=== PATIENT | female | born 1980 | race Caucasian/White ===

== ENCOUNTER 2018-07-21 10:31 | Emergency (ER) | payer BC, SELFPAY ==
[2018-07-21 10:36] VITALS: BP 135/81; PULSE 81; RESP 16; TEMP 37.1; O2SAT 100
[2018-07-21 12:10] VITALS: PULSE 65
[2018-07-21 12:20] VITALS: BP 107/77; PULSE 63; RESP 16; O2SAT 100
--- NOTE | 2018-07-21 12:39 | ED.EXTPRO ---
HPI - Extremity Problem <TRACY Pratt - Last Filed: 07/21/18 21:46> General Chief complaint: Extremity Problem,Nontraumatic Stated complaint: symptoms of heart attack Time Seen by Provider: 07/21/18 12:39 Source: patient Mode of arrival: ambulatory Limitations: no limitations History of Present Illness HPI Narrative: 37-year-old healthy female that is a nonsmoker here for complaint of numbness to the left side of her face and to her left arm on and off over the past few days. She reports that she had an allergic reaction secondary to exposure to parsnips a couple of days ago. She was seen in emergency room in [place] and was treated with Benadryl and short course of prednisone and she reports that she is currently using the prednisone. She denies any swelling. She denies any shortness of breath. She does states she has a little bit of heart burn after prednisone use. She states that her allergic reaction symptoms have resolved. She has full range of motion to all of her extremities. She is ambulatory into the emergency room. She denies any headache. No abdominal pain. No nausea vomiting no diaphoresis. She denies any other current concerns or complaints at this time. Related Data Home Medications Medication Instructions Recorded Confirmed PNV cmb#95-ferrous fumarate-FA 1 tab PO DAILY 07/21/18 07/21/18 [] Vitamin D3 1 tab PO DAILY 07/21/18 07/21/18 aspirin 81 mg PO DAILY 07/21/18 07/21/18 diphenhydramine HCl [Benadryl] 1 dose PO PRN PRN 07/21/18 07/21/18 epinephrine 0.3 ml IM PRN PRN 07/21/18 07/21/18 magnesium 1 tab PO DAILY 07/21/18 07/21/18 prednisone 1 dose PO DIRECTED 07/21/18 07/21/18 progesterone micronized 1 dose PO DIRECTED 07/21/18 07/21/18 zinc 1 tab PO DAILY 07/21/18 07/21/18 Allergies Allergy/AdvReac Type Severity Reaction Status Date / Time parsnips Allergy Severe Anaphylaxis Uncoded 07/21/18 10:45 Review of Systems <TRACY Pratt - Last Filed: 07/21/18 21:46> Constitutional Denies chills, Denies fever(s), Denies lethargy and Denies weakness Eyes Denies change in vision, Denies eye discharge, Denies irritation and Denies loss of vision ENT Ears, Nose, Mouth, and Throat: Denies change in voice, Denies neck pain and Denies sore throat Cardiovascular Denies chest pain, Denies irregular heart rhythm, Denies lightheadedness, Denies palpitations, Denies dyspnea, Denies dyspnea on exertion and Denies orthopnea Respiratory Denies cough, Denies dyspnea, Denies dyspnea on exertion and Denies wheezing Gastrointestinal Comments: Heartburn Genitourinary Denies hematuria, Denies flank pain, Denies urinary incontinence and Denies urinary urgency Musculoskeletal Denies neck pain Comments: Numbness to her left upper extremity Integumentary/Breasts Denies pruritus, Denies erythema, Denies rash and Denies wounds Neurologic Denies confusion, Denies loss of vision and Denies weakness Comments: Numbness to her left face Psychiatric Denies anxiety, Denies confusion, Denies depression, Denies homicidal ideation and Denies suicidal ideation Endocrine Denies palpitations Hematologic/Lymphatic Denies easy bruising Allergic/Immunologic Denies wheezing Exam <TRACY Pratt - Last Filed: 07/21/18 21:46> Initial Vital Signs Initial Vital Signs: Vital Signs Temperature 98.7 F 07/21/18 10:36 Pulse Rate 81 07/21/18 10:36 Respiratory Rate 16 07/21/18 10:36 Blood Pressure 135/81 07/21/18 10:36 Pulse Oximetry 100 07/21/18 10:36 Const General: cooperative and well developed Nutritional Appearance: well nourished Orientation: alert, awake, oriented x3 and not confused [facility] Head: normal to inspection, normocephalic and atraumatic Face and sinus: normal facial exam, face symmetric and no sinus tenderness Mouth: oral mucosae normal and moist mucous membranes Teeth and gingiva: dentition normal Throat: tonsils normal and uvula midline Eyes General: appearance normal, both eyes and all related structures Eyelids: eyelids normal Conjunctivae: conjunctivae normal Sclera: sclerae normal Pupils: PERRL EOM: EOM intact bilaterally Neck Neck: normal visual inspection, trachea midline, No lymphadenopathy, No midline deformity and No JVD Lymphatic: No lymphedema Resp Effort & Inspection: normal respiratory effort, able to speak in complete sentences, no respiratory distress and no use of accessory muscles Auscultation: clear to auscultation bilaterally, no rales, no rhonchi and no wheezes Cardio Rate: regular rate Rhythm: regular rhythm Heart Sounds: no click, no gallops, no murmurs and no rubs Pulses: normal peripheral pulses Skin General: no rashes or lesions noted, No jaundice and No petechiae Neuro General: alert, oriented x3, gait normal and no focal motor deficits Cranial Nerves: CN's II-XI intact bilaterally, PERRL, EOM intact bilaterally, facial strength normal, tongue midline, able to rotate head bilaterally and able to elevate shoulders bilaterally Cognition: normal cognition Speech: speech normal Gait: normal gait Motor: muscle tone normal throughout and strength 5/5 throughout Sensory Exam: no sensory deficits noted Extrem General: full ROM, no clubbing, cyanosis or edema, no pedal edema and no calf tenderness Other: Left upper extremity with no signs of trauma. Distal sensation is intact. Full range of motion to bilateral upper extremities. Strength to upper extremities equal. Distal pulses are intact. <Catalina Parsons DO - Last Filed: 07/22/18 08:29> Initial Vital Signs Initial Vital Signs: Vital Signs Temperature 98.7 F 07/21/18 10:36 Pulse Rate 81 07/21/18 10:36 Respiratory Rate 16 07/21/18 10:36 Blood Pressure 135/81 07/21/18 10:36 Pulse Oximetry 100 07/21/18 10:36 Scores <TRACY Pratt - Last Filed: 07/21/18 21:46> HEART Score Heart Score history: Slightly Suspicious Heart Score EKG: Normal Heart Score Age: < 45 years old Heart Score risk factors: No known risk factors Heart Score troponin: < or = to normal limit Heart Score Total: 0 NIH Stroke Scale Level of Conciousness: Alert, keenly responsive Ask month/age: Answers both questions correctly. Open/close eyes, close hand: Performs both tasks correctly Best gaze horizontal: Normal Visual weeks: No visual loss Facial palsy: Normal symetrical movement Left arm drift: No drift for full 10 sec Right arm drift: No drift for full 10 sec Left leg drift: No drift for full 10 sec Right leg drift: No drift for full 10 sec Limb ataxia: Absent Sensory on face/arms/legs: Mild to moderate sensory loss, can tell touch Best language: No aphasia, normal Dysarthria: Normal Extinction or inattention: No abnormality Total NIH Stroke scale score: 1 PERC Score Age greater than or equal to 50 years: No Heart rate greater than or equal to 100 bpm: No Room Air O2 Sat less than 95%: No Unilateral leg swelling: No Recent trauma or surgery: No Hemoptysis: No Prior PE or DVT: No Hormone Use: Yes Total PERC Score: 1 Course <TRACY Pratt - Last Filed: 07/21/18 21:46> Orders Ordered: ED Orders 07/21/18 12:57 CT head/brain wo con Stat XR chest 1V Stat 07/21/18 13:18 Complete Blood Count AUTO DIFF Stat Comprehensive Metabolic Panel Stat D Dimer Stat Troponin & CK Cardiac Panel Stat Vital Signs - 8 hr 07/21/18 14:21 Pulse Rate 68 Respiratory Rate 18 Blood Pressure [Left Arm] 101/68 Pulse Oximetry 100 <Catalina Parsons DO - Last Filed: 07/22/18 08:29> Orders Ordered: ED Orders 07/21/18 12:57 CT head/brain wo con Stat XR chest 1V Stat 07/21/18 13:18 Complete Blood Count AUTO DIFF Stat Comprehensive Metabolic Panel Stat D Dimer Stat Troponin & CK Cardiac Panel Stat Vital Signs - 8 hr 07/21/18 14:21 Pulse Rate 68 Respiratory Rate 18 Blood Pressure [Left Arm] 101/68 Pulse Oximetry 100 MDM - Extremity (Nontraumatic) <TRACY Pratt - Last Filed: 07/21/18 21:46> Lab Data Result diagrams: 07/21/18 13:18 07/21/18 13:18 Lab Results 07/21/18 07/21/18 07/21/18 Range/Units 13:18 13:18 13:18 WBC 15.8 H (4.5-11.0) X10^3/uL RBC 4.73 (4.0-5.2) X10^6/uL Hgb 14.6 (12.0-16.0) g/dL Hct 41.9 (36-46) % MCV 88.6 (80-100) fL MCH 30.9 (26-34) PG MCHC 34.9 (30-36) % RDW 12.4 (11.6-14.8) % Plt Count 271 (150-400) X10^3/uL Neut % (Auto) 79.1 H (50-75) % Lymph % (Auto) 13.3 L (25-40) % [place] % (Auto) 7.2 (3-14) % Eos % (Auto) 0.1 L (2-4) % Baso % (Auto) 0.3 (0-2) % Neut # (Auto) 39475 H (1249-9813) /uL D-Dimer < 200 (<230) ng/mL Sodium 144 (137-145) mmol/L Potassium 4.0 (3.4-5.1) mmol/L Chloride 103 (98-107) mmol/L Carbon Dioxide 29 (22-32) mmol/L BUN 15 (7-17) mg/dL Creatinine 0.80 (0.52-1.04) mg/dL Estimated GFR > 60.0 (>60) mL/min BUN/Creatinine Ratio 18.8 (6-22) Glucose 91 (70-100) mg/dL Calcium 9.6 (8.4-10.2) mg/dL Total Bilirubin 0.5 (0.2-1.3) mg/dL AST 18 (14-36) IU/L ALT 27 (9-52) IU/L Alkaline Phosphatase 54 (38-126) U/L Total Creatine Kinase 34 (30-135) U/L CK-MB (CK-2) TNP CK-MB (CK-2) Rel Index TNP Troponin I < 0.012 (0.01-0.034) ng/mL Total Protein 7.4 (6.3-8.2) g/dL Albumin 4.4 (3.5-5.0) g/dL Globulin 3.0 (1.7-4.1) g/dL Albumin/Globulin Ratio 1.5 (1.0-2.8) Point of Care Testing Test Results Negative Imaging Data CT scan - head: Radiologist's impression: [address] [place] [id number] Scan Report Signed Patient: Jyothi Tariq MR#: [id number] : 1980 Acct:[id number] Age/Sex: 37 / F Date of Service: 07/21/18 Loc: ED Accession Number: [id number] Procedure: CT head/brain wo con Ordering Provider: Declan Huntley PROCEDURE: CT HEAD/BRAIN WO CON INDICATIONS: Numbness to left side of face and left arm TECHNIQUE: Noncontrast 4.5 mm thick angled axial sections acquired from the foramen magnum to the vertex, with coronal and sagittal reformats. For radiation dose reduction, the following was used: automated exposure control, adjustment of mA and/or kV according to patient size. COMPARISON: None. FINDINGS: Image quality: Excellent. CSF spaces: Basal cisterns are patent. No extra-axial fluid collections. Ventricles are normal in size and shape. Brain: No midline shift. No intracranial masses or hemorrhage. Talley-white matter interface is normal. Skull and face: Calvarium and visualized facial bones are intact, without suspicious lesions. Sinuses: Visualized sinuses and mastoids are clear. IMPRESSION: No acute intracranial disease process. Dictated by: Hayde Muñoz MD, PhD on 07/21/2018 at 13:16 Approved by: Hayde Muñoz MD, PhD on 07/21/2018 at 13:18 Chest x-ray: Radiologist's impression: [place] [address] XRay Report Signed Patient: Jyothi Tariq MR#: [id number] : 1980 Acct:[id number] Age/Sex: 37 / F Date of Service: 07/21/18 Loc: ED Accession Number: [id number] Procedure: XR chest 1V Ordering Provider: Declan Huntley PROCEDURE: XR CHEST 1V INDICATIONS: chest pain and numbness to left arm TECHNIQUE: One view of the chest was acquired. COMPARISON: None. FINDINGS: Surgical changes and devices: None. Lungs and pleura: No pleural effusions or pneumothorax. Lungs are clear. Mediastinum: Mediastinal contours appear normal. Heart size is normal. Bones and chest wall: No suspicious bony lesions. Overlying soft tissues appear unremarkable. IMPRESSION: No acute pulmonary process. Dictated by: Emily Dumont M.D. on 07/21/2018 at 13:25 Approved by: Emily Dumont M.D. on 07/21/2018 at 13:26 ECG Data Interpretation: EKG shows normal sinus rhythm with no ST elevation or depression. No ectopy. Ventricular rate is 60. LA interval of 131. QRS duration 91. QT of 405. MDM Narrative Medical decision making narrative: CT of the head was obtained was negative for any acute findings. Chest x-ray was negative for any acute findings. EKG shows sinus rhythm with no ST elevation or depression. No ectopy. CBC shows elevated white count and neutrophils most likely secondary to prednisone use otherwise is unremarkable. Chem panel was obtained was unremarkable. Due to heartburn/chest discomfort cardiac enzymes were obtained and were unremarkable. Patient is currently using control so D-dimer was obtained and was negative. No emergent causes of her symptoms are found today. No acute distress. No neurological deficits are appreciated today. Follow up with primary care provider in the next few days for re-evaluation. <Catalina Parsons, DO - Last Filed: 07/22/18 08:29> Lab Data Lab Results 07/21/18 07/21/18 07/21/18 Range/Units 13:18 13:18 13:18 WBC 15.8 H (4.5-11.0) X10^3/uL RBC 4.73 (4.0-5.2) X10^6/uL Hgb 14.6 (12.0-16.0) g/dL Hct 41.9 (36-46) % MCV 88.6 (80-100) fL MCH 30.9 (26-34) PG MCHC 34.9 (30-36) % RDW 12.4 (11.6-14.8) % Plt Count 271 (150-400) X10^3/uL Neut % (Auto) 79.1 H (50-75) % Lymph % (Auto) 13.3 L (25-40) % [place] % (Auto) 7.2 (3-14) % Eos % (Auto) 0.1 L (2-4) % Baso % (Auto) 0.3 (0-2) % Neut # (Auto) 83785 H (4554-3172) /uL D-Dimer < 200 (<230) ng/mL Sodium 144 (137-145) mmol/L Potassium 4.0 (3.4-5.1) mmol/L Chloride 103 (98-107) mmol/L Carbon Dioxide 29 (22-32) mmol/L BUN 15 (7-17) mg/dL Creatinine 0.80 (0.52-1.04) mg/dL Estimated GFR > 60.0 (>60) mL/min BUN/Creatinine Ratio 18.8 (6-22) Glucose 91 (70-100) mg/dL Calcium 9.6 (8.4-10.2) mg/dL Total Bilirubin 0.5 (0.2-1.3) mg/dL AST 18 (14-36) IU/L ALT 27 (9-52) IU/L Alkaline Phosphatase 54 (38-126) U/L Total Creatine Kinase 34 (30-135) U/L CK-MB (CK-2) TNP CK-MB (CK-2) Rel Index TNP Troponin I < 0.012 (0.01-0.034) ng/mL Total Protein 7.4 (6.3-8.2) g/dL Albumin 4.4 (3.5-5.0) g/dL Globulin 3.0 (1.7-4.1) g/dL Albumin/Globulin Ratio 1.5 (1.0-2.8) Point of Care Testing Test Results Negative Discharge Plan Departure Patient Disposition: Home Clinical Impression: Arm numbness left Discharge Date/Time: 07/21/18 14:30 Interventions: ED Discharge Assessment Last Done: 07/21/18 14:29 Instructions: DI for Numbness/tingling Activity Restrictions/Additional Instructions: Imaging today was obtained and was normal. Laboratory results show elevated white count most likely secondary to prednisone use other laboratory results were normal. EKG was unremarkable. No emergent cause of her symptoms is found today. Follow up with her primary care provider in the next couple days for re-evaluation. For any worsening symptoms return to the emergency room. Prescriptions: No Action prednisone 20 mg tablet 1 dose PO DIRECTED RF: 0 epinephrine 0.3 mg/0.3 mL auto-injector 0.3 ml IM PRN PRN (Reason: Allergic Reaction) RF: 0 progesterone micronized 100 mg capsule 1 dose PO DIRECTED RF: 0 aspirin 81 mg tablet,chewable 81 mg PO DAILY RF: 0 diphenhydramine HCl [Benadryl] 25 mg Capsule 1 dose PO PRN PRN (Reason: Allergic Reaction) RF: 0 PNV cmb#95-ferrous fumarate-FA [] 28 mg iron- 800 mcg Tablet 1 tab PO DAILY RF: 0 Vitamin D3 1 tab PO DAILY RF: 0 magnesium 1 tab PO DAILY RF: 0 zinc 1 tab PO DAILY RF: 0 Referrals: [facility] [Provider Group] <Catalina Parsons DO - Last Filed: 07/22/18 08:29> Cosign ED Attending Cosignature Attestation: I was immediately available in the department for consultation. This documentation has been reviewed and I agree with assessment and plan. Supervised by Catalina Parsons DO
--- NOTE | 2018-07-21 12:57 | DI.CT.S_ITS ---
PROCEDURE: CT HEAD/BRAIN WO CON INDICATIONS: Numbness to left side of face and left arm TECHNIQUE: Noncontrast 4.5 mm thick angled axial sections acquired from the foramen magnum to the vertex, with coronal and sagittal reformats. For radiation dose reduction, the following was used: automated exposure control, adjustment of mA and/or kV according to patient size. COMPARISON: None. FINDINGS: Image quality: Excellent. CSF spaces: Basal cisterns are patent. No extra-axial fluid collections. Ventricles are normal in size and shape. Brain: No midline shift. No intracranial masses or hemorrhage. Talley-white matter interface is normal. Skull and face: Calvarium and visualized facial bones are intact, without suspicious lesions. Sinuses: Visualized sinuses and mastoids are clear. IMPRESSION: No acute intracranial disease process. Dictated by: Hayde Muñoz MD, PhD on 07/21/2018 at 13:16 Approved by: Hayde Muñoz MD, PhD on 07/21/2018 at 13:18
--- NOTE | 2018-07-21 12:57 | DI.RAD.S_ITS ---
PROCEDURE: XR CHEST 1V INDICATIONS: chest pain and numbness to left arm TECHNIQUE: One view of the chest was acquired. COMPARISON: None. FINDINGS: Surgical changes and devices: None. Lungs and pleura: No pleural effusions or pneumothorax. Lungs are clear. Mediastinum: Mediastinal contours appear normal. Heart size is normal. Bones and chest wall: No suspicious bony lesions. Overlying soft tissues appear unremarkable. IMPRESSION: No acute pulmonary process. Dictated by: Emily Dumont M.D. on 07/21/2018 at 13:25 Approved by: Emily Dumont M.D. on 07/21/2018 at 13:26
[2018-07-21 13:26] LABS: Add Manual Diff / Slide Review NO; Basophils Percent Auto 0.3 % (0-2); Eosinophils Percent Auto 0.1 % (2-4); Hematocrit 41.9 % (36-46); Hemoglobin 14.6 g/dL (12.0-16.0); Lymphocytes Percent Auto 13.3 % (25-40); Mean Corpuscular HGB Conc 34.9 % (30-36); Mean Corpuscular Hemoglobin 30.9 PG (26-34); Mean Corpuscular Volume 88.6 fL (80-100); Monocytes Percent Auto 7.2 % (3-14); Neutrophils Absolute Auto 12500 /uL (1500-7000); Neutrophils Percent Auto 79.1 % (50-75); Platelet Count 271 X10^3/uL (150-400); Red Blood Cell Count 4.73 X10^6/uL (4.0-5.2); Red Cell Distribution Width 12.4 % (11.6-14.8); White Blood Cell Count 15.8 X10^3/uL (4.5-11.0)
[2018-07-21 13:36] LABS: Alanine Aminotransferase 27 IU/L (9-52); Albumin 4.4 g/dL (3.5-5.0); Albumin Globulin Ratio 1.5 (1.0-2.8); Alkaline Phosphatase 54 U/L (38-126); Aspartate Aminotransferase 18 IU/L (14-36); BUN Creatinine Ratio 18.8 (6-22); Bilirubin Total 0.5 mg/dL (0.2-1.3); Blood Urea Nitrogen 15 mg/dL (7-17); Calcium 9.6 mg/dL (8.4-10.2); Carbon Dioxide 29 mmol/L (22-32); Chloride 103 mmol/L (98-107); Creatine Kinase 34 U/L (30-135); D Dimer < 200 ng/mL (<230); Estimated Glomerular Filt Rate > 60.0 mL/min (>60); Glucose 91 mg/dL (70-100); HEMOLYSIS < 15 (0-50); Sodium 144 mmol/L (137-145); Total Protein 7.4 g/dL (6.3-8.2)
[2018-07-21 13:47] LABS: Troponin I < 0.012 ng/mL (0.01-0.034)
[2018-07-21 14:21] VITALS: BP 101/68; PULSE 68; RESP 18; O2SAT 100
== END 2018-07-21 14:30 | disposition home or self-care (01) ==
PROVIDERS: Emergency Provider Nurse Practitioner Family
DX: R20.0 Anesthesia of skin (principal)
CPT/HCPCS: 36591; 70450; 71045; 80053; 81025; 82550; 84484; 85025; 85379; 93005; 99282; 99285